=== PATIENT | female | born 1950 | race Asian ===

== ENCOUNTER 2024-03-06 11:16 | Emergency (ER) | payer MEDICAID ==
[~2024-03-06] VITALS: Ht 149.9 cm; Wt 49.1 kg
[2024-03-06 12:04] LABS: Basophils # (auto) 0 10 ^3/uL (0-0.2); Basophils % (auto) 0.5 % (0.0-2.0); Eosinophils # (auto) 0.2 10 ^3/uL (0-0.8); Hematocrit 37.9 % (36.0-46.0); Lymphocytes # (auto) 1.7 10 ^3/uL (0.4-5.4); Lymphocytes % (auto) 28.2 % (10.0-50.0); Mean Corpuscular Hemoglobin 32.6 pg (28.0-32.0); Mean Corpuscular Hgb Conc. 34.2 g/dL (32.0-36.0); Mean Corpuscular Volume 95.1 fL (80.0-100.0); Monocytes # (auto) 0.5 10 ^3/uL (0-1.3); Monocytes % (auto) 8.6 % (0.0-12.0); Neutrophils # (auto) 3.5 10 ^3/uL (1.6-8.6); Neutrophils % (auto) 58.7 % (37.0-80.0); Nucleated Red Blood Cells % 0.1 %; Platelet Count (auto) 270 10^3/uL (140-450); Red Blood Cells 3.98 10^6/uL (4.0-5.20); Red Cell Distribution Width 12.2 % (11.8-14.3)
[2024-03-06 12:12] LABS: Chloride 106 mmol/L (98-107); Potassium 3.5 mmol/L (3.5-5.1); Sodium 142 mmol/L (136-145)
[2024-03-06 12:13] LABS: Anion Gap 7 (5-15); Calcium 10.3 mg/dL (8.7-10.4); Carbon Dioxide 29 mmol/L (20-31)
[2024-03-06 12:18] LABS: Blood Urea Nitrogen 12 mg/dL (9-23)
--- NOTE | 2024-03-06 12:25 | DVH ---
CHEST RADIOGRAPH Indication: high bp Technique: Single frontal view of the chest was obtained COMPARISON: None FINDINGS: Lines and Tubes: None Lungs: Clear Pleura: No effusion. No pneumothorax. Cardiomediastinal contours: Unremarkable Bones: Unremarkable IMPRESSION: No acute disease.
--- NOTE | 2024-03-06 12:30 | DVH ---
EXAM: CT HEAD WITHOUT CONTRAST INDICATION: headache hi bp TECHNIQUE: CT of the head without intravenous contrast. Radiation Dose Information: CT Dose: CTDI volume is 50.07 mGy. Dose-length product is 702.72 mGy*cm The dose indicators for CT are the volume Computed Tomography (CT) Dose Index (CTDIvol) and the Dose Length Product (DLP), and are measured in units of mGy and mGy-cm, respectively. These indicators are not patient dose, but values generated from the CT scanner acquisition factors. The report includes radiation exposure data for exposures received during this examination. COMPARISON: None FINDINGS: There is no evidence of acute intracranial hemorrhage, extra-axial collection, mass effect, midline s hift, herniation or hydrocephalus. Subcentimeter chronic left internal and external capsule lacunar i nfarcts. The ventricles, sulci and cisterns are age appropriate. The jolly-white differentiation is intact. Patchy periventricular and subcortical white matter hypoattenuation is nonspecific but may be related to small vessel ischemic disease. The visualized paranasal sinuses and mastoid air cells are clear. The surrounding soft tissues and osseous structures are unremarkable. IMPRESSION: 1. No evidence of acute intracranial abnormality. 2. Subcentimeter chronic lacunar infarcts at the left external and internal capsule. 3. Chronic white matter microangiopathic ischemic disease. HS:Y
[2024-03-06 12:32] LABS: Glucose 134 mg/dL (74-106)
--- NOTE | 2024-03-06 13:16 | ED.PDOC ---
History of Present Illness HPI Comments 73 year old female with PMHX of HTN, DM, and HLD, presents to the ED with CC of high blood pressure and headache. Per patient's daughter, patient has had high blood pressure readings for a couple days at home, and this morning her blood pressure read at 175/90 when taken by home health nurse. Patient states she has a left sided headache that radiates into her left shoulder; denies any other symptoms. Patient denies any tobacco usage, ETOH consumption, or illicit drugs. Patient denies changes, focal weakness, chest pain, shortness of breath, abdominal pain or nausea/vomiting. Chief Complaint: High Blood Pressure Time Seen by MD: 11:20 Reviewed Notes: Nurses Notes, Medications, Allergies Allergies: Coded Allergies: Lansoprazole (Verified Allergy, 03/15/09) Mode of Arrival: Wheelchair Severity: Moderate Timing: Hours Duration: Since onset Prehospital treatment: None Past Medical History PAST MEDICAL HISTORY: Anxiety, Depression, DM, High Lipids, HTN Surgical History: Denies all surgeries QUESTIONED DOCUMENTS EXAMINER History: Denies all QUESTIONED DOCUMENTS EXAMINER Hx Family History Family History: Unknown Social History Smoker: Non-Smoker Alcohol: Denies ETOH Use Drugs: Denies Drug Use Lives In: Home Constitutional: denies: chills, diaphoresis, fatigue, fever, malaise, sweats, weakness, others EENTM: denies: blurred vision, double vision, ear bleeding, ear discharge, ear drainage, ear pain, ear ringing, eye pain, eye redness, hearing loss, mouth pain, mouth swelling, nasal discharge, nose bleeding, nose congestion, nose pain, photophobia, tearing, throat pain, throat swelling, voice changes, others Respiratory: denies: cough, hemoptysis, orthopnea, SOB at rest, shortness of breath, SOB with excertion, stridor, wheezing, others Cardiovascular: denies: chest pain, dizzy spells, diaphoresis, Dyspnea on exertion, edema, irregular heart beat, left arm pain, lightheadedness, p alpitations, PND, syncope, others Gastrointestinal: denies: abdomen distended, abdominal pain, blood streaked bowels, constipated, diarrhea, dysphagia, difficulty swallowing, hematemesis, melena, nausea, poor appetite, poor fluid intake, rectal bleeding, rectal pain, vomiting, others Genitourinary: denies: abnormal vagina bleeding, burning, dyspareunia, dysuria, flank pain, frequency, hematuria, incontinence, pain, , vagina discharge, urgency, others Neurological: reports: headache (left sided); denies: dizziness, fainting, left sided numbness, left sided weakness, numbness, paresthesia, pre-existing deficit, right sided numbness, right sided weakness, seizure, speech problems, tingling, tremors, weakness, others Musculoskeletal: denies: back pain, gout, joint pain, joint swelling, muscle pain, muscle stiffness, neck pain, others Integumetry: denies: bruises, change in color, change in hair/nails, dryness, laceration, lesions, lumps, rash, wounds, others Allergic/Immunocompromised: denies: Difficulty Healing, Frequent Infections, Hives, Itching, others Hematologic/Lymphatic: denies: anemia, blood clots, easy bleeding, easy bruising, swollen glands, others Endocrine: denies: excessive hunger, excessive sweating, excessive thirst, excessive urination, flushing, intolerance to cold, intolerance to heat, unexplained weight gain, unexplained weight loss, others Psychiatric: denies: anxiety, bipolar disorder, depression, hopeless, panic disorder, schizophrenia, sleepless, suicidal, others All Other Systems: Reviewed and Negative Physical Exam General Appearance: No Apparent Distress HEENT: PERRL/EOMI, Other (Face symmetric, pupils symmetric, moist mucous membranes) Neck: Full Range of Motion, Normal Inspection, Other (Left cervical paraspinal muscle tenderness/spasm) Respiratory: Lungs Clear, No Accessory Muscle Use, No Respiratory Distress, Normal Breath Sounds Cardiovascular: No Edema, No JVD, Regular Rate/Rhythm Breast Exam: Deferred Gastrointestinal: Non Tender, Soft Genitalia: Deferred Pelvic: Deferred Rectal: Deferred Extremities: Normal inspection, Normal range of motion, Non-tender, No pedal edema Neurologic: Alert (Oriented x4), Normal Affect, Normal Mood, Other (Moves all extremities, no gross focal deficit.) Cerebellar Function: NOT DONE Reflexes: NOT DONE Skin: Dry, Normal Color, Warm Lymphatic: NOT DONE Was a procedure done? Was a procedure done?: No Differential Dx Considerations may include: Accelerated hypertension, hypertensive urgency/emergency, intracranial he morrhage, CVA, TIA, CHF, ME, renal failure, among others X-Ray, Labs, Meds, VS Vital Signs Date Time Temp Pulse Resp B/P (MAP) Pulse Ox O2 Delivery O2 Flow Rate FiO2 03/06/24 16:01 100 19 124/72 (89) 96 03/06/24 13:53 160/88 03/06/24 13:44 84 17 98 Room Air 03/06/24 13:44 98.1 84 17 160/88 (112) 98 98.1 03/06/24 11:22 97.5 85 18 179/81 (113) 98 Lab Test 03/06/24 15:30 03/06/24 13:41 03/06/24 13:16 03/06/24 11:40 Range/Units Troponin I High Sensitivity 9 8 8 </=34 ng/L Urine Color Light-yellow Yellow Urine Clarity Clear Clear Urine pH 6.0 5.0-9.0 Urine Specific [place] 1.012 1.001-1.035 Urine Protein Negative Negative Urine Ketones Negative Negative Urine Blood Negative Negative /uL Urine Nitrite Negative Negative Urine Bilirubin Negative Negative Urine Urobilinogen Normal Negative mg/dL Urine Leukocyte Esterase Negative Negative /uL Urine RBC <1 0 - 4 /hpf Urine WBC 1 0 - 5 /hpf Urine Squamous Epithelial Cells Few <5 /hpf Urine Bacteria None seen None Seen /hpf Urine Mucus Few None Seen Urine Glucose Trace Normal mg/dL White Blood Count 6.0 4.4-10.8 10^3/uL Red Blood Count 3.98 L 4.0-5.20 10^6/uL Hemoglobin 13.0 12.2-16.2 g/dL Hematocrit 37.9 36.0-46.0 % Mean Corpuscular Volume 95.1 80.0-100.0 fL Mean Corpuscular Hemoglobin 32.6 H 28.0-32.0 pg Mean Corpuscular Hemoglobin Concent 34.2 32.0-36.0 g/dL Red Cell Distribution Width 12.2 11.8-14.3 % Platelet Count 270 140-450 10^3/uL Mean Platelet Volume 7.2 6.9-10.8 fL Neutrophils (%) (Auto) 58.7 37.0-80.0 % Lymphocytes (%) (Auto) 28.2 10.0-50.0 % Monocytes (%) (Auto) 8.6 0.0-12.0 % Eosinophils (%) (Auto) 4.0 0.0-7.0 % Basophils (%) (Auto) 0.5 0.0-2.0 % Neutrophils # (Auto) 3.5 1.6-8.6 10 ^3/uL Lymphocytes # (Auto) 1.7 0.4-5.4 10 ^3/uL Monocytes # (Auto) 0.5 0-1.3 10 ^3/uL Eosinophils # (Auto) 0.2 0-0.8 10 ^3/uL Basophils # (Auto) 0 0-0.2 10 ^3/uL Nucleated Red Blood Cells 0.1 % Sodium Level 142 136-145 mmol/L Potassium Level 3.5 3.5-5.1 mmol/L Chloride Level 106 98-107 mmol/L Carbon Dioxide Level 29 20-31 mmol/L Anion Gap 7 5-15 Blood Urea Nitrogen 12 9-23 mg/dL Creatinine 0.86 0.550-1.02 mg/dL Glomerular Filtration Rate Calc 71 >90 mL/min BUN/Creatinine Ratio 14.0 10.0-20.0 Serum Glucose 134 H 74-106 mg/dL Calcium Level 10.3 8.7-10.4 mg/dL B-Type Natriuretic Peptide 47.45 0-100 pg/mL Current Medications Medications (Trade) Dose Ordered Sig/Fred Route Start Time Stop Time Status Last Admin Hydralazine HCl (Apresoline Injection) 10 mg ONCE ONCE IV 03/06/24 11:45 03/06/24 11:46 DC 03/06/24 13:53 Acetaminophen/ Hydrocodone Bitart ([place] 5/325MG Tab) 1 tab ONCE ONCE PO 03/06/24 11:45 03/06/24 11:46 DC 03/06/24 13:48 [place] [id number] Ph: [phone] DIAGNOSTIC IMAGING Diagnostic Imaging Report : [id number] Signed PATIENT: SA DAKOTAH BACON ACCT: [id number] UNIT: [id number] : 1950 LOC: ER ROOM / BED: / AGE / SEX: 73 / F ADM STATUS: REG ER SERVICE 1137 ORDERING PHYSICIAN: CALDERON LOVELACE MD PROCEDURE(s): CXRP - CHEST PORTABLE REASON: high bp ORDER NUMBER(s): [id number], ACCESSION NUMBER(s): [id number] CHEST RADIOGRAPH Indication: high bp Technique: Single frontal view of the chest was obtained COMPARISON: None FINDINGS: Lines and Tubes: None Lungs: Clear Pleura: No effusion. No pneumothorax. Cardiomediastinal contours: Unremarkable Bones: Unremarkable IMPRESSION: No acute disease. ATED BY: KENJI MEYER MD DICTATED DATE/TIME: 03/06/241222 SIGNED BY: KENJI MEYER MD SIGNED DATE/TIME: 03/06/241222 CC: [place] [id number] Ph: [phone] DIAGNOSTIC IMAGING Diagnostic Imaging Report : [id number] Signed PATIENT: SA DAKOTAH BACON ACCT: [id number] UNIT: [id number] : 1950 LOC: ER ROOM / BED: / AGE / SEX: 73 / F ADM STATUS: REG ER SERVICE 1137 ORDERING PHYSICIAN: CALDERON LOVELACE MD PROCEDURE(s): HWOCT - HEAD WITHOUT CONTRAST REASON: headache hi bp ORDER NUMBER(s): [id number], ACCESSION NUMBER(s): [id number] EXAM: CT HEAD WITHOUT CONTRAST INDICATION: headache hi bp TECHNIQUE: CT of the head without intravenous contrast. Radiation Dose Information: CT Dose: CTDI volume is 50.07 mGy. Dose-length product is 702.72 mGy*cm The dose indicators for CT are the volume Computed Tomography (CT) Dose Index (CTDIvol) and the Dose Length Product (DLP), and are measured in units of mGy and mGy-cm, respectively. These indicators are not patient dose, but values generated from the CT scanner acquisition factors. The report includes radiation exposure data for exposures received during this examination. COMPARISON: None FINDINGS: There is no evidence of acute intracranial hemorrhage, extra-axial collection, mass effect, midline shift, herniation or hydrocephalus. Subcentimeter chronic left internal and external capsule lacunar infarcts. The ventricles, sulci and cisterns are age appropriate. The jolly-white differentiation is intact. Patchy periventricular and subcortical white matter hypoattenuation is nonspecific but may be related to small vessel ischemic disease. The visualized paranasal sinuses and mastoid air cells are clear. The surrounding soft tissues and osseous structures are unremarkable. IMPRESSION: 1. No evidence of acute intracranial abnormality. 2. Subcentimeter chronic lacunar infarcts at the left external and internal capsule. 3. Chronic white matter microangiopathic ischemic disease. HS:Y ATED BY: MANAN CAMARA DO DICTATED DATE/TIME: 03/06/241226 SIGNED BY: MANAN CAMARA DO SIGNED DATE/TIME: 03/06/241226 CC: X-Ray, Labs, Meds, VS Comment 73-year-old female with a history of hypertension, diabetes, dyslipidemia, anxiety and depression presenting with elevated blood pressure and headache Vitals remarkable for BP 179/81 Exam remarkable for left cervical paraspinal muscle soft tissue tenderness/spasm EKG Head CT IMPRESSION: 1. No evidence of acute intracranial abnormality. 2. Subcentimeter chronic lacunar infarcts at the left external and internal capsule. 3. Chronic white matter microangiopathic ischemic disease. Chest x-ray no acute disease CBC, BMP, UA, BNP and 3 serial troponins unremarkable for any abnormality of acute significance Patient treated with the following in the ED: Hydralazine 10 mg IV, [place] 5/325 mg p.o. On re-evaluation, patient states pain has improved. Vitals are stable. Blood pressure is 124/72. Hospitalization was considered, however patient had rapid improvement of symptoms with treatment in the ED, and I no longer feel hospitalization is necessary. Patient appears stable for outpatient follow-up with her primary physician for possible blood pressure medication adjustment. Rx Tylenol, Robaxin Time of 1ST Reevaluation: 11:50 Reevaluation 1ST: Unchanged Time of 2ND Reevaluation: 17:03 Reevaluation 2ND: Improved Patient Education/Counseling: Diagnosis, Treatment Family Education/Counseling: Diagnosis, Treatment Departure 1 Departure Time of Disposition: 17:03 Impression: Primary Impression: Accelerated hypertension Additional Impression: Tension headache Disposition: 01 HOME / SELF CARE / HOMELESS Condition: Stable Additional Instructions: Your blood and urine tests were unremarkable. Your head CT was unremarkable. Your blood pressure is now controlled. Your headache and neck pain may be due to muscle tightness. I have prescribed pain medication and muscle relaxers. Follow-up with your primary doctor in 1-2 days for possible blood pressure medication adjustment. Continue taking your current medications as directed for now. e-Prescriptions Methocarbamol (Methocarbamol) 500 Mg Tab 500 MG PO TID PRN, #30 TAB Prn muscle spasm Prov: CALDERON LOVELACE MD 03/06/24 Acetaminophen (Tylenol) 325 Mg Cap 650 MG PO Q4HP PRN, #30 CAP Prn pain Prov: CALDERON LOVELACE MD 03/06/24 Discharged With: Relative Critical Care Note Critical Care Time?: No Stability Stability form required: No Heart Score Heart Score: Heart Score Response (Comments) Value History N/A 0 EKG N/A 0 Age N/A 0 Risk Factors N/A 0 Troponin N/A 0 Total 0 I personally scribed for CLADERON LOVELACE MD ([email or web address]) on 03/06/24 at 13:16. Electronically submitted by Dayna Roldan ([email or web address]). I personally scribed for CALDERON LOVELACE MD ([email or web address]) on 03/06/24 at 13:59. Electronically submitted by Dayna Roldan ([email or web address]). I personally scribed for CALDERON LOVELACE MD ([email or web address]) on 03/06/24 at 14:01. Electronically submitted by Dayna Roldan ([email or web address]). CALDERON LOVELACE MD Mar 06, 2024 13:16
[2024-03-06 13:43] LABS: Urine Bacteria None Seen /hpf (None Seen)
[2024-03-06 13:44] VITALS: TEMP 98.1
[2024-03-06] MEDS: HYDROcodone-ACET 5/325MG TAB PO ONE (13:48)
[2024-03-06] MEDS: hydrALAZINE HCL 20 MG/ML VL IV ONE (13:53)
[2024-03-06 16:01] VITALS: BP 124/72; PULSE 100; RESP 19; O2SAT 96
[2024-03-06 16:43] LABS: Urine Blood Negative /uL (Negative); Urine Clarity Clear (Clear); Urine Color Light-Yellow (Yellow); Urine Mucus FEW (None Seen); Urine Protein, UAD Negative (Negative); Urine Specific Gravity 1.012 (1.001-1.035); Urine Squamous Epithelial Cell FEW /hpf (<5); Urine Urobilinogen Normal (Negative); Urine WBC 1 /hpf (0 - 5)
[2024-03-06] MEDS ORDERED: ACET1CAP14 PO (17:06)
[2024-03-06] MEDS ORDERED: METH-1181 PO (17:06)
== END 2024-03-06 17:22 | disposition home or self-care (01) ==
LOC: EDUNIT# 11:16 → EDBD 11:16 → ER 11:23
DX: I10 Essential (primary) hypertension (principal); G44.209 Tension-type headache, unspecified, not intractable; E11.9 Type 2 diabetes mellitus without complications; E78.5 Hyperlipidemia, unspecified; F41.9 Anxiety disorder, unspecified; F32.9 Major depressive disorder, single episode, unspecified; Z88.8 Allergy status to other drugs, medicaments and biological substances
CPT/HCPCS: 36415; 70450; 71045; 80048; 81001; 82947; 83880; 84484; 85025; 96374; 99285; J0360